=== PATIENT | male | born 1995 | race Hispanic/Latino ===

== ENCOUNTER 2019-08-17 11:29 | Emergency (ER) | payer OTHER ==
--- NOTE | 2019-08-17 14:31 | RAD REPORT ---
EXAM DESCRIPTION: RAD - Chest Pa And Lat (2 Views) - 08/17/2019 2:16 pm CLINICAL HISTORY: air under diaphragm?Left upper quadrant pain, abdominal pain, possible free air COMPARISON: July 2015 TECHNIQUE: PA and lateral views of the chest were obtained. FINDINGS: The lungs are clear. Lung markings match comparison. Heart size is normal and central vas culature is within normal limits. No pleural effusion or pneumothorax seen. No acute bony finding n oted. No aortic abnormality. No free air under the diaphragm. IMPRESSION: No acute cardiopulmonary process. No free air under the diaphragm.
[2019-08-17] MEDS ORDERED: DICYCLOMINE HCL 10 MG CAP ONE (14:38)
[2019-08-17] MEDS ORDERED: SUCRALFATE 1 GM TABLET ONE (14:38)
[2019-08-17 15:05] LABS: Absolute Lymphocytes (CBC) 2.7 K/uL (0.7-4.9); Basophils % 0.5 % (0-1.3); Hematocrit 44.8 % (39.6-49.0); Lymphocytes % 25.6 % (15.3-44.8); MPV 8.6 fL (7.6-11.3); RBC Red Blood Cell Count 4.99 M/uL (4.33-5.43)
[2019-08-17 15:35] LABS: ALT/SGPT 71 U/L (12-78); AST/SGOT 22 U/L (15-37); Albumin 4.3 g/dL (3.4-5.0); Alkaline Phosphatase 85 U/L (45-117); BUN Blood Urea Nitrogen 9 mg/dL (7-18); Bicarbonate 30 mmol/L (21-32); Bilirubin Direct 0.2 mg/dL (0-0.2); Bilirubin Total 0.6 mg/dL (0.2-1.0); Glucose Level 81 mg/dL (74-106); Lipase 95 U/L (73-393); Sodium Level 141 mmol/L (136-145)
--- NOTE | 2019-08-17 15:44 | EDPHYS ---
Physician Documentation [facility] Name: Jeferson Davidson Jr Age: 24 yrs Sex: Male : 1995 Arrival Date: 08/17/2019 Time: 11:32 Bed 20 Private MD: ED Physician Raji Rodriguez HPI: 08/17 14:46 This 24 yrs old Male presents to ER via Ambulatory with complaints of snw Abdominal Pain, Back Pain. 14:46 The patient presents with abdominal pain in the left upper quadrant. Onset: The snw symptoms/episode began/occurred acutely, 1 week(s) ago, and became persistent. The symptoms do not radiate. Associated signs and symptoms: Pertinent negatives: nausea, vomiting, and diarrhea. The symptoms are described as crampy, stabbing. Severity of pain: At its worst the pain was moderate in the emergency department the pain has improved. The patient has not experienced similar symptoms in the past. The patient has not recently seen a physician. Historical: - Allergies: 11:45 Codeine; aj1 11:45 Amoxicillin; aj1 - Home Meds: 11:45 None [Active]; aj1 - PMHx: 11:45 None; aj1 - PSHx: 11:45 None; aj1 - Immunization history:: Flu vaccine is up to date. - Social history:: Smoking status: Patient uses tobacco products, denies chronic smoking, but will smoke occasionally. - Ebola Screening: : Patient denies travel to an Ebola-affected area in the 21 days before illness onset. ROS: 14:46 Constitutional: Negative for fever, chills, and weight loss, Eyes: Negative for injury, snw pain, redness, and discharge, ENT: Negative for injury, pain, and discharge, Neck: Negative for injury, pain, and swelling, Cardiovascular: Negative for chest pain, palpitations, and edema, Respiratory: Negative for shortness of breath, cough, wheezing, and pleuritic chest pain, : Negative for injury, bleeding, discharge, and swelling, MS/Extremity: Negative for injury and deformity, Skin: Negative for injury, rash, and discoloration, Neuro: Negative for headache, weakness, numbness, tingling, and seizure. 14:46 Abdomen/GI: Positive for abdominal pain. 14:46 Back: Positive for radiated pain. Exam: 14:44 Constitutional: This is a well developed, well nourished patient who is awake, alert, snw and in no acute distress. Head/Face: Normocephalic, atraumatic. Eyes: Pupils equal round and reactive to light, extra-ocular motions intact. Lids and lashes normal. Conjunctiva and sclera are non-icteric and not injected. Cornea within normal limits. Periorbital areas with no swelling, redness, or edema. ENT: Nares patent. No nasal discharge, no septal abnormalities noted. Tympanic membranes are normal and external auditory canals are clear. Oropharynx with no redness, swelling, or masses, exudates, or evidence of obstruction, uvula midline. Mucous membranes moist. Neck: Trachea midline, no thyromegaly or masses palpated, and no cervical lymphadenopathy. Supple, full range of motion without nuchal rigidity, or vertebral point tenderness. No Meningismus. Chest/axilla: Normal chest wall appearance and motion. Nontender with no deformity. No lesions are appreciated. Cardiovascular: Regular rate and rhythm with a normal S1 and S2. No gallops, murmurs, or rubs. Normal PMI, no JVD. No pulse deficits. Respiratory: Lungs have equal breath sounds bilaterally, clear to auscultation and percussion. No rales, rhonchi or wheezes noted. No increased work of breathing, no retractions or nasal flaring. Back: No spinal tenderness. No costovertebral tenderness. Full range of motion. Skin: Warm, dry with normal turgor. Normal color with no rashes, no lesions, and no evidence of cellulitis. MS/ Extremity: Pulses equal, no cyanosis. Neurovascular intact. Full, normal range of motion. Neuro: Awake and alert, GCS 15, oriented to person, place, time, and situation. Cranial nerves II-XII grossly intact. Motor strength 5/5 in all extremities. Sensory grossly intact. Cerebellar exam normal. Normal gait. Psych: Awake, alert, with orientation to person, place and time. Behavior, mood, and affect are within normal limits. 14:44 Abdomen/GI: Inspection: abdomen appears normal, Bowel sounds: normal, Palpation: mild abdominal tenderness, in the posterior aspect of left lateral abdomen and left upper quadrant. Vital Signs: 11:45 BP 126 / 75; Pulse 76; Resp 18; Temp 97.7; Pulse Ox 100% on R/A; Height 5 ft. 9 in. aj1 (175.26 cm) (R); MDM: 14:09 Patient medically screened. snw 15:57 Data reviewed: vital signs, nurses notes. Data interpreted: Pulse oximetry: on room air snw is 100 %. Interpretation: normal. Counseling: I had a detailed discussion with the patient and/or guardian regarding: the historical points, exam findings, and any diagnostic results supporting the discharge/admit diagnosis, radiology results, the need for outpatient follow up, to return to the emergency department if symptoms worsen or persist or if there are any questions or concerns that arise at home. Special discussion: Based on the patient's Hx, exam, and Dx evaluation, there is no indication for emergent surgery or inpatient Tx. It is understood by the patient/guardian that if the Sx's persist or worsen they need to return immediately for re-evaluation. Based on the history and exam findings, there is no indication for further emergent testing or inpatient evaluation. I discussed with the patient/guardian the need to see the primary care provider for further evaluation of the symptoms. 08/17 14:30 Order name: Basic Metabolic Panel; Complete Time: 15:40 snw 08/17 14:30 Order name: CBC with Diff; Complete Time: 15:30 snw 08/17 14:30 Order name: Creatinine for Radiology; Complete Time: 15:30 snw 08/17 14:30 Order name: Hepatic Function; Complete Time: 15:40 snw 08/17 14:30 Order name: Lipase; Complete Time: 15:40 snw 08/17 14:34 Order name: Urine Dipstick--Ancillary (enter results) eb 08/17 11:38 Order name: Urine Dipstick-Ancillary (obtain specimen); Complete Time: 15:00 snw 08/17 13:35 Order name: Chest Pa And Lat (2 Views) XRAY sn 08/17 14:30 Order name: Labs collected and sent; Complete Time: 15:00 snw 08/17 14:58 Order name: RAD; Complete Time: 15:06 EDMS Administered Medications: 14:45 Drug: Bentyl 20 mg Route: PO; aa5 14:45 Drug: CarafATE 1 grams Route: PO; aa5 Disposition: 08/17/19 15:42 Discharged to Home. Impression: Upper abdominal pain, unspecified. - Condition is Stable. - Discharge Instructions: Abdominal Pain, Adult, Colic, Fat and Cholesterol Restricted Diet, Peptic Ulcer. - Prescriptions for Bentyl 20 mg Oral Tablet - take 1 tablet by ORAL route every 6 hours As needed; 20 tablet. - Work release form, Medication Reconciliation Form, Thank You Letter, Antibiotic Education, Prescription Opioid Use form. - Follow up: Private Physician; When: 2 - 3 days; Reason: Recheck today's complaints, Continuance of care, Re-evaluation by your physician. Follow up: Emergency Department; When: As needed; Reason: Worsening of condition. Addendum: 08/20/2019 08:47 Co-signature as Attending Physician, Raji Rodriguez MD I agree with the assessment and k dr plan of care. Signatures: Dispatcher [employer] EDMS Joceline Kilgore RN RN aj1 Raji Rodriguez MD MD [facility] Sanna Tellez, AUTOMOTIVE SALESPERSON-C AUTOMOTIVE SALESPERSON-Csnw Alejandra Stanford RN RN aa5 Hailee Bentley RN RN hb Corrections: (The following items were deleted from the chart) 08/17 15:53 15:42 08/17/2019 15:42 Discharged to Home. Impression: Upper abdominal pain, hb unspecified. Condition is Stable. Forms are Medication Reconciliation Form, Thank You Letter, Antibiotic Education, Prescription Opioid Use. Follow up: Private Physician; When: 2 - 3 days; Reason: Recheck today's complaints, Continuance of care, Re-evaluation by your physician. Follow up: Emergency Department; When: As needed; Reason: Worsening of condition. snw
--- NOTE | 2019-08-17 15:44 | ER ---
Nurse's Notes [facility] Name: Jeferson Davidson Jr Age: 24 yrs Sex: Male : 1995 Arrival Date: 08/17/2019 Time: 11:32 Bed 20 Private MD: Diagnosis: Upper abdominal pain, unspecified Presentation: 08/17 11:42 Presenting complaint: Patient states: LUQ abdominal pain that radiates to the back for aj1 the past week. Reports that he vomited once yesterday. Denies fever. Transition of care: patient was not received from another setting of care. Onset of symptoms was July 2019. Risk Assessment: Do you want to hurt yourself or someone else? Patient reports no desire to harm self or others. Initial Sepsis Screen: Does the patient meet any 2 criteria? No. Patient's initial sepsis screen is negative. Does the patient have a suspected source of infection? No. Patient's initial sepsis screen is negative. Care prior to arrival: None. 11:42 Method Of Arrival: Ambulatory aj 11:42 Acuity: THANG 3 aj1 Triage Assessment: 11:45 General: Appears in no apparent distress. comfortable, Behavior is calm, cooperative, aj1 appropriate for age. Pain: Complains of pain in left upper quadrant Pain currently is 9 out of 10 on a pain scale. Neuro: Level of Consciousness is awake, alert, obeys commands. Cardiovascular: Patient's skin is warm and dry. Respiratory: Airway is patent Respiratory effort is even, unlabored, Respiratory pattern is regular, symmetrical. GI: Reports upper abdominal pain. Historical: - Allergies: 11:45 Codeine; aj1 11:45 Amoxicillin; aj1 - Home Meds: 11:45 None [Active]; aj1 - PMHx: 11:45 None; aj1 - PSHx: 11:45 None; aj1 - Immunization history:: Flu vaccine is up to date. - Social history:: Smoking status: Patient uses tobacco products, denies chronic smoking, but will smoke occasionally. - Ebola Screening: : Patient denies travel to an Ebola-affected area in the 21 days before illness onset. Screenin:30 Abuse screen: Denies threats or abuse. Nutritional screening: No deficits noted. aa5 Tuberculosis screening: No symptoms or risk factors identified. Fall Risk None identified. Assessment: 13:30 General: Appears comfortable, Behavior is calm, cooperative. Pain: Complains of pain in aa5 left upper quadrant Pain radiates to back Pain currently is 5 out of 10 on a pain scale. Quality of pain is described as sharp, Pain began 2-3 days ago. Is intermittent. Neuro: Level of Consciousness is awake, alert, obeys commands, Oriented to person, place, time, situation. Cardiovascular: Heart tones S1 S2 present Patient's skin is warm and dry. Rhythm is regular. Respiratory: Airway is patent Respiratory effort is even, unlabored, Respiratory pattern is regular, symmetrical, Breath sounds are clear bilaterally. GI: Abdomen is round non-distended, Bowel sounds present X 4 quads. Abd is soft and non tender X 4 quads. Reports nausea, Reports vomited once yesterday, denies vomiting today. Patient currently denies diarrhea. : No signs and/or symptoms were reported regarding the genitourinary system. EENT: No signs and/or symptoms were reported regarding the EENT system. Derm: Skin is pink, warm \\T\\ dry. Musculoskeletal: Range of motion: intact in all extremities. 13:50 Reassessment: Patient is alert, oriented x 3, equal unlabored respirations, skin aa5 warm/dry/pink. Pt notified of need for urine specimen, pt states "I can't pee right now but I'll try later" . 14:45 Reassessment: Patient is alert, oriented x 3, equal unlabored respirations, skin aa5 warm/dry/pink. Pt given warm blanket. Pt's mother remains at bedside. . 14:45 Reassessment: Notified of wait time for lab results. . aa5 Vital Signs: 11:45 BP 126 / 75; Pulse 76; Resp 18; Temp 97.7; Pulse Ox 100% on R/A; Height 5 ft. 9 in. aj1 (175.26 cm) (R); ED Course: 11:32 Patient arrived in ED. as 11:38 Sanna Tellez FNP-C [facility]. snw 11:38 Raji Rodriguez MD is Attending Physician. snw 11:44 Triage completed. aj1 11:45 Arm band placed on Patient placed in an exam room. aj1 13:30 Bed in low position. Call light in reach. Side rails up X 1. Adult w/ patient. aa5 13:48 Alejandra Stanford, RN is Primary Nurse. aa5 14:45 Initial lab(s) drawn, by me, sent to lab. Inserted saline lock: 20 gauge in right aa5 antecubital area, using aseptic technique. Blood collected. 15:52 No provider procedures requiring assistance completed. IV discontinued, intact, hb bleeding controlled, No redness/swelling at site. Pressure dressing applied. Administered Medications: 14:45 Drug: Bentyl 20 mg Route: PO; aa5 14:45 Drug: CarafATE 1 grams Route: PO; aa5 Outcome: 15:42 Discharge ordered by MD. snw 15:52 Discharged to home ambulatory, with family. hb 15:52 Condition: stable 15:52 Discharge instructions given to patient, family, Instructed on discharge instructions, follow up and referral plans. medication usage, Demonstrated understanding of instructions, follow-up care, medications, Prescriptions given X 1. 15:53 Patient left the ED. hb Signatures: Joceline Kilgore RN RN aj1 Sanna Tellez, MATH TUTOR-C MATH TUTOR-Evelyn Crenshaw as Alejandra Stanford, RN RN aa5 Hailee Bentley, GILSON RN hb
[2019-08-17 16:09] VITALS: BP 126/75; TEMP 97.7; O2SAT 100
[2019-08-17 16:17] LABS: Urine Blood NEGATIVE (NEG); Urine Glucose NEGATIVE (NEG); Urine Protein NEGATIVE (NEG); Urine Specific Gravity 1.025 (1.005-1.030)
== END 2019-08-17 15:53 | disposition home or self-care (01) ==
LOC: ER 11:29
DX: R10.12 Left upper quadrant pain (principal); Z72.0 Tobacco use; Z88.1 Allergy status to other antibiotic agents; Z88.5 Allergy status to narcotic agent
CPT/HCPCS: 36415; 71046; 80048; 80076; 81003; 83690; 85025; 99284

== ENCOUNTER 2020-02-10 17:23 | Emergency (ER) | payer OTHER ==
--- NOTE | 2020-02-10 18:30 | RAD REPORT ---
EXAM DESCRIPTION: CT - Head Brain Wo Cont - 02/10/2020 6:21 pm CLINICAL HISTORY: HEADACHEhistory of left-sided head and face trauma COMPARISON: HEAD BRAIN W O CONTRAST dated 01/22/2016 TECHNIQUE: Axial 5 mm thick images of the head were obtained without IV contrast. All CT scans are performed using dose optimization technique as appropriate and may include automated exposure control or mA/KV adjustment according to patient size. FINDINGS: No intracranial hemorrhage, mass, edema or shift of mid-line structures. No acute infarcti on changes seen. No abnormal extra-axial fluid collections. Ventricles are normal. Contusion and marysol a changes are seen in the fatty tissues overlying the left frontal bone and left periorbital region. No globe or orbital content injury on the left. Mastoid air cells and visualized portions of the paranasal sinuses are clear. No acute bony findings. IMPRESSION: No intracranial abnormality. Contusion and edema changes over the left-sided forehead and face soft tissues. Underlying orbital an d bony structures are intact.
[2020-02-10] MEDS ORDERED: HYDROCODONE/APAP 10/325 TAB ONE (18:58)
--- NOTE | 2020-02-10 19:02 | EDPHYS ---
Physician Documentation [facility] Name: Jeferson Davidson Jr Age: 24 yrs Sex: Male : 1995 Arrival Date: 02/10/2020 Time: 17:26 Bed 25 Private MD: ED Physician Manish Canales HPI: 02/09 18:08 This 24 yrs old Male presents to ER via Ambulatory with complaints of Left 4th pm1 Finger Injury. 18:09 The patient or guardian reports pain, swelling. The complaints affect the proximal pm1 phalanx of left ring finger. Context: resulted from a fall, Patient was drinking last night and fell forward and bent his left 4th finger backwards. Patient also has a headache. Has a contusion to left side of his forehead. No LOC, neck pain. Onset: The symptoms/episode began/occurred last night. Modifying factors: The symptoms are alleviated by holding still, the symptoms are aggravated by bending left 4th finger. Associated signs and symptoms: Pertinent negatives: cyanosis distally, decreased sensation distally, numbness distally, tingling distally. Severity of symptoms: in the emergency department the symptoms are unchanged. The patient has not experienced similar symptoms in the past. Historical: - Allergies: 17:37 Amoxicillin; ss 17:37 Codeine; ss - PSHx: 17:37 None; ss - Immunization history:: Adult Immunizations up to date. - Social history:: Smoking status: Patient denies any tobacco usage or history of. ROS: 18:09 Constitutional: Negative for fever, chills, and weight loss, Neck: Negative for injury, pm1 pain, and swelling, Cardiovascular: Negative for chest pain, palpitations, and edema, Respiratory: Negative for shortness of breath, cough, wheezing, and pleuritic chest pain, Abdomen/GI: Negative for abdominal pain, nausea, vomiting, diarrhea, and constipation, Back: Negative for injury and pain. 18:09 Skin: Negative for injury, rash, and discoloration, Neuro: Negative for headache, weakness, numbness, tingling, and seizure. 18:09 MS/extremity: Positive for pain, swelling, tenderness, of the left ring finger, Negative for paresthesias. Exam: 18:09 Constitutional: This is a well developed, well nourished patient who is awake, alert, pm1 and in no acute distress. Chest/axilla: Normal chest wall appearance and motion. Nontender with no deformity. No lesions are appreciated. Cardiovascular: Regular rate and rhythm with a normal S1 and S2. No gallops, murmurs, or rubs. No pulse deficits. Skin: Warm, dry with normal turgor. Normal color with no rashes, no lesions, and no evidence of cellulitis. 18:09 Respiratory: Lungs have equal breath sounds bilaterally, clear to auscultation and percussion. No rales, rhonchi or wheezes noted. No increased work of breathing, no retractions or nasal flaring. Abdomen/GI: Soft, non-tender, with normal bowel sounds. No distension or tympany. No guarding or rebound. No evidence of tenderness throughout. Back: No spinal tenderness. No costovertebral tenderness. Full range of motion. 18:09 Head/face: Exam is negative for altman signs, raccoon eyes, Noted is no obvious of injury or deformity except contusion, that is superficial, of the forehead. 18:09 Musculoskeletal/extremity: Extremities: grossly normal except: noted in the proximal phalanx of left ring finger: swelling, tenderness, brisk capillary refill to left 4th finger. the left ring finger Sensation intact. Vital Signs: 17:35 BP 132 / 73; Pulse 82; Resp 15; Temp 97.5(TE); Pulse Ox 98% on R/A; Height 5 ft. 9 in. ss (175.26 cm); Pain 9/10; 19:21 BP 146 / 93; Pulse 78; Resp 18; Temp 98.0; Pulse Ox 98% ; Pain 2/10; ll1 Procedures: 19:03 Splinting: Splint applied to left ring finger using finger splint, applied by tech. pm1 Examined by me, post splint application: neurovascular intact, 2+ distal pulses palpable, brisk capillary refill noted, Patient tolerated well. MDM: 17:36 Patient medically screened. [facility] 18:53 Data reviewed: vital signs. Data interpreted: Pulse oximetry: on room air is 98 %. pm1 Interpretation: normal. Counseling: I had a detailed discussion with the patient and/or guardian regarding: the historical points, exam findings, and any diagnostic results supporting the discharge/admit diagnosis, radiology results, the need for outpatient follow up, for definitive care, a hand specialist, to return to the emergency department if symptoms worsen or persist or if there are any questions or concerns that arise at home. 02/09 18:01 Order name: CT Head Brain wo Cont; Complete Time: 18:41 pm1 02/09 18:01 Order name: Hand Left 3 View XRAY; Complete Time: 19:30 pm1 02/09 18:43 Order name: Finger Splint; Complete Time: 19:42 pm1 Administered Medications: 19:00 Drug: HYDROcodone-acetaminophen 10 mg-325 mg 1 tabs {Note: RASS 0.} Route: PO; ll1 19:20 Follow up: Response: No adverse reaction; Pain is decreased; RASS: Alert and Calm (0) ll1 Disposition: 02/10 10:38 Co-signature as Attending Physician, Manish Canales MD I agree with the assessment and gissel plan of care. Disposition: 02/10/20 18:59 Discharged to Home. Impression: Displaced fracture of proximal phalanx of left ring finger, Contusion of other part of head - forehead. - Condition is Stable. - Discharge Instructions: Facial or Scalp Contusion, Finger Fracture, Head Injury, Adult. - Prescriptions for Tramadol 50 mg Oral Tablet - take 1 tablet by ORAL route every 8 hours as needed; 12 tablet. - Medication Reconciliation Form, Thank You Letter, Antibiotic Education, Prescription Opioid Use form. - Follow up: Emergency Department; When: As needed; Reason: Worsening of condition. Follow up: Private Physician; When: 2 - 3 days; Reason: Recheck today's complaints, Continuance of care, Re-evaluation by your physician. - Problem is new. - Symptoms have improved. Signatures: Dispatcher [employer] EDAR Manish Canales MD MD cha Smirch, Shelby, RN RN ss Samson Cadena, MIRTA BRAKE RIDER pm1 Noah Patel RN RN ll1 Corrections: (The following items were deleted from the chart) 02/09 19:00 18:59 02/10/2020 18:59 Discharged to Home. Impression: Displaced fracture of proximal pm1 phalanx of left ring finger. Condition is Stable. Forms are Medication Reconciliation Form, Thank You Letter, Antibiotic Education, Prescription Opioid Use. Follow up: Emergency Department; When: As needed; Reason: Worsening of condition. Follow up: Private Physician; When: 2 - 3 days; Reason: Recheck today's complaints, Continuance of care, Re-evaluation by your physician. Problem is new. Symptoms have improved. pm1 19:45 19:00 02/10/2020 18:59 Discharged to Home. Impression: Displaced fracture of proximal ll1 phalanx of left ring finger; Contusion of other part of head - forehead. Condition is Stable. Discharge Instructions: Finger Fracture. Prescriptions for Tramadol 50 mg Oral Tablet - take 1 tablet by ORAL route every 8 hours as needed; 12 tablet. and Forms are Medication Reconciliation Form, Thank You Letter, Antibiotic Education, Prescription Opioid Use. Follow up: Emergency Department; When: As needed; Reason: Worsening of condition. Follow up: Private Physician; When: 2 - 3 days; Reason: Recheck today's complaints, Continuance of care, Re-evaluation by your physician. Problem is new. Symptoms have improved. pm1
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
[2020-02-10 19:50] VITALS: O2SAT 98
[2020-02-10 19:52] VITALS: BP 146/93; TEMP 98
== END 2020-02-10 19:45 | disposition home or self-care (01) ==
LOC: ER 17:23
PROC: 2W3KX1Z Immobilization of Left Finger using Splint (ICD-10-PCS; principal; 2020-02-10)
DX: S62.615A Displaced fracture of proximal phalanx of left ring finger, initial encounter for closed fracture (principal); S00.83XA Contusion of other part of head, initial encounter; W19.XXXA Unspecified fall, initial encounter; Y93.89 Activity, other specified; Y92.9 Unspecified place or not applicable; Z88.1 Allergy status to other antibiotic agents; Z88.5 Allergy status to narcotic agent
CPT/HCPCS: 70450; 99283

== ENCOUNTER 2020-02-14 07:50 | Day surgery (SDC) | payer OTHER ==
[2020-02-14] MEDS ORDERED: Ringers Lactate 1,000 ML IV ONE (08:21)
[2020-02-14] MEDS ORDERED: CEFAZOLIN/SWI 1gm 1 GM/10 ML SYR ONE (08:21)
[2020-02-14] MEDS ORDERED: MIDAZOLAM HCL 2 MG/2 ML INJ ONE (08:50)
[2020-02-14] MEDS ORDERED: propofoL 200 MG/20 ML VIAL IV ONE (08:50)
[2020-02-14] MEDS ORDERED: FENTANYL CITR 100 MCG/2 ML ONE (08:50)
[2020-02-14] MEDS: MEPERIDINE HCL 25 MG/0.5 ML ONE ×2 (10:20→11:00)
[2020-02-14] MEDS: FENTANYL CITR 100 MCG/2 ML ONE ×2 (10:35→10:45)
[2020-02-14] MEDS ORDERED: PROMETHAZINE INJ 25 MG/ML AMP ONE (10:38)
[2020-02-14] MEDS: HYDROMORPHONE HCL 1 MG/ML INJ ONE ×4 (11:00→11:31)
--- NOTE | 2020-02-14 11:04 | RAD REPORT ---
EXAM DESCRIPTION: RAD - Fluoroscopy <1 Hour - 02/14/2020 10:34 am CLINICAL HISTORY: ORIF LEFT 4TH FINGER COMPARISON: No comparisons FINDINGS: Fluoroscopy time 0.9 minutes.
[2020-02-14] MEDS: LABETALOL 20 MG/4ML SYRINGE IV ONE ×2 (11:10→11:20)
[2020-02-14] MEDS ORDERED: HYDROCODONE/APAP 10/325 TAB ONE (12:06)
[2020-02-14] MEDS ORDERED: FENTANYL CITR 250 MCG/5 ML ONE (12:13)
[2020-02-14 12:59] VITALS: O2SAT 96
[2020-02-14 13:01] VITALS: BP 142/85; TEMP 97
--- NOTE | 2020-02-14 17:55 | OP ---
Surgeon: Ehsan Cuello MD Deck Lid Fitter: Fabian. Preoperative Diagnosis: Fracture of the left ring finger proximal phalanx. Postoperative Diagnosis: Fracture of the left ring finger proximal phalanx. Procedure Performed: Attempted percutaneous pinning, open reduction and internal fixation, splint. Anesthesia: General. Procedure In Detail: After satisfactory induction of general anesthesia, a C- arm was brought in. A template was used to reduce the fracture which was 5 days old and spiral. It could not be reduced adequately. Then, the hand was prepped with Betadine scrub, Betadine paint, and dry sterile drapes applied in the usual manner. The arm was exsanguinated with Esmarch. Tourniquet was inflated to 250 mm. Hand was placed on a [place] table. A curvilinear incision made over the dorsal and the radial surface of the proximal phalanx. The flap was elevated and dissection proceeded down. The extensor mechanism was retracted ulnarly . Periosteal elevator was used. The fracture was reduced and then a 6-hole plate was cut to 5 holes and then was held in place with 1.3 mm screws, range of length from 10 to 6 mm. Five screws were used. C- arm revealed adequate reduction. Electrocautery was used for hemostasis. Periosteum was closed with 6-0 Vicryl. Skin closed with 4-0 Prolene with vertical mattress, dressed with Xeroform, 2 inch Lynn, Kerlix, and a splint holding the wrist and a splint holding the wrist in 10 degrees of dorsiflexion, MCP 90 PIP and DIP 0. Patient tolerated the procedure well and returned to Recovery. KEITH/DAWNA Voice ID: [id number] Report ID: [id number] MAUDE
== END 2020-02-14 12:40 | disposition home or self-care (01) ==
LOC: OR 07:50
PROVIDERS: ATTEND Specialist
PROC: 0PSV04Z Reposition Left Finger Phalanx with Internal Fixation Device, Open Approach (ICD-10-PCS; principal; 2020-02-14 09:00)
DX: S62.615A Displaced fracture of proximal phalanx of left ring finger, initial encounter for closed fracture (principal); X58.XXXA Exposure to other specified factors, initial encounter
CPT/HCPCS: 76000; 26735; J2704; J2550; J2250; J3010 ×3; J2175; J1170 ×2; J0690; J7120

== ENCOUNTER 2021-07-27 20:36 | Emergency (ER) | payer OTHER ==
--- OUTSIDE RECORDS SUMMARY | 2021-07-27 20:39 | XMS REPORT | Continuity of Care Document ---
:1995 Author Organization [facility] t Address [address] [place] [address] Dr. Marin [address] [place] [id number] Care Team Providers Name Role Phone Unavailable Unavailable Unavailable Problems This patient has no known problems. Allergies, Adverse Reactions, Alerts This patient has no known allergies or adverse reactions. Medications This patient has no known medications. Procedures This patient has no known procedures. Results This patient has no known results.
[2021-07-27 21:27] LABS: Absolute Lymphocytes (CBC) 3.3 K/uL (0.7-4.9); Basophils % 0.6 % (0-1.3); Hematocrit 44.1 % (39.6-49.0); Lymphocytes % 30.5 % (15.3-44.8); MPV 8.3 fL (7.6-11.3); RBC Red Blood Cell Count 4.89 M/uL (4.33-5.43)
[2021-07-27 21:46] LABS: ALT/SGPT 75 U/L (12-78); AST/SGOT 30 U/L (15-37); Albumin 4.1 g/dL (3.4-5.0); Alkaline Phosphatase 71 U/L (45-117); BUN Blood Urea Nitrogen 14 mg/dL (7-18); Bicarbonate 27 mmol/L (21-32); Bilirubin Direct < 0.1 mg/dL (0-0.2); Bilirubin Total 0.3 mg/dL (0.2-1.0); Glucose Level 109 mg/dL (74-106); Lipase 110 U/L (73-393); Potassium 3.9 mmol/L (3.5-5.1); Sodium Level 143 mmol/L (136-145)
[2021-07-27] MEDS ORDERED: NA CHLORIDE 0.9% 1,000 ML ONE (22:30)
[2021-07-27] MEDS ORDERED: KETOROLAC 30 MG/ML INJ ONE (22:30)
--- NOTE | 2021-07-28 00:32 | EDPHYS ---
Physician Documentation [facility] Name: Jeferson Davidson Jr Age: 26 yrs Sex: Male : 1995 Arrival Date: 07/27/2021 Time: 20:41 Bed 23 Private MD: ED Physician Katie Perdomo HPI: 07/27 22:19 This 26 yrs old Male presents to ER via Ambulatory with complaints of pm1 Abdominal Pain. 22:19 The patient presents with abdominal pain in the left upper quadrant. Onset: The pm1 symptoms/episode began/occurred yesterday. The symptoms do not radiate. Associated signs and symptoms: Pertinent positives: nausea and vomiting, Pertinent negatives: chest pain, diarrhea, dysuria, fever, shortness of breath. Modifying factors: The symptoms are alleviated by nothing, the symptoms are aggravated by alcohol. Severity of pain: in the emergency department the pain has improved. The patient has experienced similar episodes in the past, a few times. The patient has not recently seen a physician. Historical: - Allergies: 20:57 Amoxicillin; ss 20:57 Codeine; ss - Home Meds: 20:57 Ibuprofen Oral [Active]; ss - PMHx: 20:57 None; ss - PSHx: 20:57 None; ss - Immunization history:: Client reports having NOT received the Covid vaccine. - Social history:: Smoking status: Patient/guardian denies using tobacco, Stopped _ months ago 5. ROS: 22:19 Constitutional: Negative for fever, chills, and weight loss, Cardiovascular: Negative pm1 for chest pain, palpitations, and edema, Respiratory: Negative for shortness of breath, cough, wheezing, and pleuritic chest pain. 22:19 MS/Extremity: Negative for injury and deformity, Skin: Negative for injury, rash, and discoloration, Neuro: Negative for headache, weakness, numbness, tingling, and seizure. 22:19 Abdomen/GI: Positive for abdominal pain, nausea and vomiting, Negative for diarrhea, constipation. 22:19 All other systems are negative. Exam: 22:19 Constitutional: This is a well developed, well nourished patient who is awake, alert, pm1 and in no acute distress. Head/Face: Normocephalic, atraumatic. 22:19 Back: No spinal tenderness. No costovertebral tenderness. Full range of motion. Skin: Warm, dry with normal turgor. Normal color with no rashes, no lesions, and no evidence of cellulitis. MS/ Extremity: Pulses equal, no cyanosis. Neurovascular intact. Full, normal range of motion. 22:19 Eyes: Exam is negative for acute changes, Extraocular movements: intact throughout, Sclera: no acute changes, icterus, is not appreciated. 22:19 ENT: Exam is negative for acute changes, Mouth: Lips: normal, Oral mucosa: normal, pink and intact, moist. 22:19 Cardiovascular: Exam negative for acute changes, Rate: normal, Rhythm: regular, Pulses: no pulse deficits are appreciated. 22:19 Respiratory: Exam negative for acute changes, respiratory distress, shortness of breath, Breath sounds: are clear throughout. 22:19 Abdomen/GI: Inspection: obese Palpation: soft, in all quadrants, mild abdominal tenderness, in the left upper quadrant. 22:19 Neuro: Exam negative for acute changes, Orientation: is normal, Mentation: is normal, Motor: is normal, moves all fours. Vital Signs: 20:55 BP 171 / 99; Pulse 95; Resp 16; Temp 98.1(TE); Pulse Ox 100% on R/A; Height 5 ft. 9 in. ss (175.26 cm); Pain 7/10; 23:58 BP 115 / 66; Pulse 70; Resp 16; Temp 98.2; Pulse Ox 99% on R/A; ch4 07/28 00:43 BP 114 / 72; Pulse 67; Resp 18; Pulse Ox 99% on R/A; em MDM: 07/27 22:07 Patient medically screened. pm1 07/28 00:31 Data reviewed: vital signs. Data interpreted: Pulse oximetry: on room air is 99 %. pm1 Interpretation: normal. Counseling: I had a detailed discussion with the patient and/or guardian regarding: the historical points, exam findings, and any diagnostic results supporting the discharge/admit diagnosis, lab results, radiology results, the need for outpatient follow up, a family practitioner, to return to the emergency department if symptoms worsen or persist or if there are any questions or concerns that arise at home. 07/27 21:07 Order name: Basic Metabolic Panel em 07/27 21: Order name: CBC with Diff; Complete Time: 22:04 em 08/30 21:07 Order name: Hepatic Function; Complete Time: 22:04 em 07/27 21:07 Order name: Lipase; Complete Time: 22:04 em 07/27 21:08 Order name: Basic Metabolic Panel; Complete Time: 22:04 EDMS 07/27 22:05 Order name: CT Abd/Pelvis - IV Contrast Only pm1 07/27 21:07 Order name: IV Saline Lock; Complete Time: 22:00 em 07/27 21:07 Order name: Labs collected and sent; Complete Time: 22:00 em Administered Medications: 07/27 22:10 Drug: Ketorolac 30 mg Route: IVP; Site: right antecubital; ch4 22:11 Drug: NS 0.9% 1000 ml Route: IV; Rate: 1000 ml; Site: right antecubital; ch4 07/28 00:40 Drug: Pepcid (famotidine) 20 mg Route: IVP; Site: right antecubital; em 00:41 Drug: GI Cocktail without - (Maalox Suspension 30 ml, Lidocaine Liquid 2 % 15 em ml) Route: PO; Disposition: 19:13 Co-signature as Attending Physician, Katie Perdomo MD. ma2 Disposition Summary: 07/28/21 00:31 Discharge Ordered Location: Home pm1 Problem: new pm1 Symptoms: have improved pm1 Condition: Stable pm1 Diagnosis - Abdominal pain, unspecified pm1 Followup: pm1 - With: Emergency Department - When: As needed - Reason: Worsening of condition Followup: pm1 - With: Private Physician - When: 2 - 3 days - Reason: Recheck today's complaints, Continuance of care, Re-evaluation by your physician Discharge Instructions: - Discharge Summary Sheet pm1 - Abdominal Pain, Adult pm1 Forms: - Medication Reconciliation Form pm1 - Thank You Letter pm1 - Work release form em - Antibiotic Education pm1 - Prescription Opioid Use pm1 Prescriptions: - Pepcid 20 mg Oral Tablet - take 1 tablet by ORAL route every 12 hours for 10 days; 20 tablet; Refills: 0, pm1 Product Selection Permitted Signatures: Dispatcher [employer] Rajesh Lange RN RN em Smirch, Shelby, RN RN ss Samson Cadena, ASSISTANT PROSECUTING ATTORNEY ASSISTANT PROSECUTING ATTORNEY pm1 Katie Perdomo MD MD ma2 Kylie Bajwa, RN RN ch4
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
[2021-07-28 00:50] VITALS: TEMP 98.2; O2SAT 99
[2021-07-28 00:52] VITALS: BP 114/72
[2021-07-28] MEDS ORDERED: MAGNES/ALUMIN/SIMET 30ML UCUP ONE (00:57)
[2021-07-28] MEDS ORDERED: LIDOCAINE VISCOUS 2% SOLN 15 ML UDC ONE (00:57)
[2021-07-28] MEDS ORDERED: FAMOTIDINE 20 MG/2 ML VIAL IV ONE (00:58)
--- NOTE | 2021-07-28 13:25 | RAD REPORT ---
EXAM DESCRIPTION: CT - Abdomen Pelvis W Contrast - 07/28/2021 6:27 am CLINICAL HISTORY: 26 years, Male, ABD PAIN COMPARISON: None TECHNIQUE: Contrast-enhanced images of the abdomen and pelvis were performed utilizing 5 mm slice th ickness at 5 mm interval reconstruction from the lung bases to the ischial tuberosities after the adm inistration of IV contrast. In addition multiplanar reformats in the coronal and sagittal plane were obtained and reviewed. This exam was performed according to our departmental dose-optimization protocol, which includes auto mated exposure control, adjustment of the mA and/or kV according to patient size and/or use of iterat moiz reconstruction technique. FINDINGS: The lung bases demonstrate to be clear. The liver demonstrate decreased attenuation corresponding to mild fatty filtration. Otherwise the katie er, gallbladder, pancreas, spleen and adrenal glands demonstrate to be unremarkable, no focal lesions are noted. The kidneys demonstrate normal uptake of contrast media with no evidence for hydronephrosis. Grossly the unopacified stomach, small bowel and large bowel demonstrate to be within normal limits. There is no evidence for bowel dilatation/or free air. The appendix is normal. The urinary bladder demonstrate to be unremarkable. The prostate gland is normal. The aorta demon strate to be normal. There is no retroperitoneal lymphadenopathy. There is no evidence for ascites/ or significant abnormal fluid collections. The rest of the soft tissue and bony structures are within normal limits. IMPRESSION: No acute intra-abdominal process. Mild fatty filtration of the liver. Otherwise unremarkable CT scan of the abdomen and pelvis with contrast. Electronically signed by: Kaushal Chiu MD 07/27/2021 10:58 PM CDT Due to temporary technical issues with the PACS/Fluency reporting system, reports are being signed by the in house radiologists without review as a courtesy to insure prompt reporting. The interpreting radiologist is fully responsible for the content of the report.
== END 2021-07-28 00:44 | disposition home or self-care (01) ==
LOC: ER 20:36
DX: R10.12 Left upper quadrant pain (principal); Z88.1 Allergy status to other antibiotic agents; Z88.5 Allergy status to narcotic agent
CPT/HCPCS: 85025; 80048; 36415; 80076; 83690; 74177; Q9967; J7030; 96374; 96375; 99284

== ENCOUNTER 2023-01-31 09:19 | Emergency (ER) | payer OTHER ==
--- OUTSIDE RECORDS SUMMARY | 2023-01-31 09:34 | XMS REPORT | Continuity of Care Document ---
:1995 Author Organization [facility] t Address [address] [place] [address] Care Team Providers Name Role Phone PCP, PATIENT DOES NOT HAVE A Primary Care Physician Georgia Sauceda RN, Franco Parada Attending Clinician Unavailable LACHELLE LAURA Attending Clinician Unavailable Lachelle Junior Attending Clinician Doctor Unassigned, [place] Attending Clinician Unavailable Lien Farris Attending Clinician Payers Payer Name Policy Type Policy Number Effective Date Expiration Date [facility] [id number] 2020 2022 PPO/POS 00:00:00 00:00:00 [place] [id number] 2015 00:00:00 Problems Condition Condition Condition Status Onset Resolution Last Treating Co mments Source Name Details Category Date Date Treatment Clinician Date No known No known Disease Unive rs active active ity of problems problems [facility] Allergies, Adverse Reactions, Alerts Allergy Allergy Status Severity Reaction(s) Onset Inactive Treating Comm ents Source Name Type Date Date Clinician Codeine Propensi Active Other - See Chest Un osmani ty to comments 07-01 pain ity of adverse 00:00: [place] reaction Medical s Branch CODEINE DRUG Active Other-Cmnt Unive rs INGREDI 8 ity of 00:00: [place] [id number] Medical Branch Social History Social Habit Start Date Stop Date Quantity Comments Source Exposure to 2022-05-16 2022-05-26 Not sure [facility] SARS-CoV-2 (event) 00:00:00 09:46:00 Medica l Branch Sex Assigned At [birth year] [facility] 00:00:00 00:00:00 Medical Branch Smoking Status Start Date Stop Date Source Unknown if ever smoked [facility] Medications Ordered Filled Start Stop Current Ordering Indication Dosage Frequency Signature Comments Components Source Medication Medication Date Date Medication? Clinician (SIG) Name Name bromphenira Yes [id number] 5mL Take 5 mL Univers mine-pseudo 6-29 by mouth 4 it y of ephedrine-D 00:00[place] ([place] (BROMF[place] 00 times Medical DM) 2-30-10 daily as Bran ch mg/5 mL needed for syrup Congestion /Allergies or Cough. fluticasone Yes [id number] 2{spray Use 2 Univers propionate 6-29 } Sprays in ity of 50 00:00: each [place] mcg/actuati 00 nostril Medic al on nasal daily. Branch spray fexofenadin Yes [id number] 1{tbl} Take 1 Univers e-pseudoeph 6-29 tablet by ity of edrine 00:00: mouth 2 [place] (OREN-D) 00 (two) Medical 60-120 mg times Branch per tablet daily. bromphenira Yes [id number] 5mL Take 5 mL Univers mine-pseudo 6-29 by mouth 4 it y of ephedrine-D 00:00: (four[place] (BROMFED 00 times Medical DM) 2-30-10 daily as Bran ch mg/5 mL needed for syrup Congestion /Allergies or Cough. fluticasone Yes [id number] 2{spray Use 2 Univers propionate 6-29 } Sprays in ity of 50 00:00: each [place] mcg/actuati 00 nostril Medic al on nasal daily. Branch spray fexofenadin 0 Yes [id number] 1{tbl} Take 1 Univers e-pseudoeph 6-29 tablet by ity of edrine 00:00: mouth 2 [place] (OREN-D) 00 (two) Medical 60-120 mg times Branch per tablet daily. methocarbam 2020- No 1000mg 1,000 mg, Univers oL 01-13 Oral, ONCE ity of (ROBAXIN) 17:45: 17:42 NOW, 1 [place] tablet 00 :00 dose, Tue Medical 1,000 mg 01/13/21 at [facility] h 1145, ISIDRO acetaminoph 2020- No 1000mg 1,000 mg, Univers en 01-13 Oral, ity of (TYLENOL) 17:45: 17:42 ONCE, 1 [place] tablet [place] :[place] dose, e Medical 1,000 mg 01/13/21 at [facility] h 1145, Routine ketorolac 2020- No 60mg 60 mg, Unive rs (TORADOL) 01-13 Intramuscu ity of injection 17:45: 17:43 lar, ONCE, [place] 60 mg 00 :00 1 dose, Medical [facility] Branch 01/13/21 at 1145, ISIDRO
Fa culty member approving Restricted medication : EMERGENCY ROOM, ibuprofen Yes [id number] 800mg Take 1 Univers 800 mg 2-16 tablet by ity of tablet 00:00: mouth [place] 00 every 8 Medical (eight) Branch hours as needed for Pain (scale 4-6). methocarbam Yes [id number] 750mg Take 1 Univers oL 750 mg 2-16 tablet by ity o f tablet 00:00: mouth 4 [place] 00 (four) Medical times Branch daily as needed for Other (muscle strain). ibuprofen Yes [id number] 800mg Take 1 Univers 800 mg 2-16 tablet by ity of tablet 00:00: mouth [place] 00 every 8 Medical (eight) Branch hours as needed for Pain (scale 4-6). methocarbam 0 Yes [id number] 750mg Take 1 Univers oL 750 mg 2-16 tablet by ity o f tablet 00:00: mouth 4 [place] 00 (four) Medical times Branch daily as needed for Other (muscle strain). ibuprofen 0 Yes [id number] 800mg Take 1 Univers 800 mg 2-16 tablet by ity of tablet 00:00: mouth [place] 00 every 8 Medical (eight) Branch hours as needed for Pain (scale 4-6). methocarbam 2021-0 Yes [id number] 750mg Take 1 Univers oL 750 mg 2-16 tablet by ity o f tablet 00:00: mouth 4 [place] 00 (four) Medical times Branch daily as needed for Other (muscle strain). ibuprofen Yes [id number] 800mg Take 1 Univers 800 mg 2-16 tablet by ity of tablet 00:00: mouth [place] 00 every 8 Medical (eight) Branch hours as needed for Pain (scale 4-6). methocarbam Yes [id number] 750mg Take 1 Univers oL 750 mg 2-16 tablet by ity o f tablet 00:00: mouth 4 [place] 00 (four) Medical times [place] daily as needed for Other (muscle strain). Vital Signs Vital Name Observation Time Observation Value Comments Source Systolic blood 2022-05-26 14:52:00 132 mm[Hg] Univer sity [facility] Diastolic blood 2022-05-26 14:52:00 83 [facility]Hg[facility] 2022-05-26 14:52:00 90 /min [facility] Body temperature 2022-05-26 14:52:00 37.44 [facility] Respiratory rate 2022-05-26 14:52:00 18 /[facility] Body height 2022-05-26 14:52:00 175.3 cm [facility] Body weight 2022-05-26 14:52:00 133.993 kg [facility] BMI 2022-05-26 14:52:00 43.62 kg/m2 [facility] Oxygen saturation in 2022-05-26 14:52:00 97 /[facility] Arterial blood by [facility] Pulse oximetry Branch Systolic blood 2021-01-13 16:03:00 153 mm[Hg] [facility]astolic blood 2021-01-13 16:03:00 89 mm[Hg] [facility] 2021-01-13 16:03:00 87 /min [facility] Body temperature 2021-01-13 16:03:00 37.17 [facility] Respiratory rate 2021-01-13 16:03:00 20 /min [facility] Body weight 2021-01-13 16:03:00 148.326 kg [facility] Oxygen saturation in 2021-01-13 16:03:00 98 /min [facility] Arterial blood by [facility] Pulse oximetry [place] Procedures Procedure Date / Time Performed Performing Clinician Sour e CONSENT/REFUSAL FOR 2022-05-26 14:47:32 Doctor Unassigned, No Un [facility] DIAGNOSIS AND Name Medical Branch TREATMENT XR SPINE THORACIC 3 2021-01-13 17:03:31 Lien Ell[facility] VW Medical Branch XR RIBS 3 VW RIGHT 2021-01-13 17:03:31 Lien [facility] Encounters Start End Encounter Admission Attending Care Care Encounter Source Date/Time Date/Time Type Type Clinicians Facility Department ID 2022-05-27 2022-05-27 Telephone AMY Sauceda [id number] Univers 00:00:00 00:00:00 Franco AMES [id number] [facility] [id number] Jairon as [id number] [facility] 019 Branch 2022-05-26 2022-05-26 Outpatient R [facility] [id number] Univers 10:00:00 10:27:25 LACHELLE germain o f [facility] 2022-05-26 2022-05-26 Urgent [facility] [id number] Univers 10:00:00 10:20:00 Care [facility] [id number] i ty of [place] [id number] Jairon as EB?BLEA [id number] Mn dical [address] MEDICAL OFFICE BUILDING 2022-05-26 2022-05-26 Orders Doctor REYES [id number] Univers 00:00:00 00:00:00 Only UnassignedKWAKU [id number] ity of [facility] [id number] Jairon as [id number] [facility] 009 Branch 2021-01-13 2021-01-13 Emergency [facility] [id number] Univers 10:05:00 11:59:00 Lien Suero [id number] i mindy [place] [id number] [facility] [id number] [address] 2021-01-13 2021-01-13 Emergency X [facility] ERT [id number] Univers 09:38:00 09:38:[address] [facility] Results This patient has no known results.
[2023-01-31] MEDS ORDERED: KETOROLAC 30 MG/ML INJ ONE (10:00)
[2023-01-31] MEDS ORDERED: DIAZEPAM 5 MG TABLET ONE (10:00)
[2023-01-31] MEDS ORDERED: MORPHINE 4 MG/ML SYR ONE (12:33)
--- NOTE | 2023-01-31 12:54 | ER ---
Nurse's Notes [facility] Name: Jeferson Davidson Jr Age: 27 yrs Sex: Male : 1995 Arrival Date: 01/31/2023 Time: 09:24 Bed 12 Private MD: Diagnosis: Strain of muscle and tendon of back wall of thorax;Strain of muscle, fascia and tendon of abdomen, lower back and pelvis Presentation: 01/31 09:44 Chief complaint: Patient states: pain to left sub-scapular area. Coronavirus screen: At aa5 this time, the client does not indicate any symptoms associated with coronavirus-19. Ebola Screen: Patient denies travel to an Ebola-affected area in the 21 days before illness onset. Initial Sepsis Screen: Does the patient meet any 2 criteria? No. Patient's initial sepsis screen is negative. Does the patient have a suspected source of infection? No. Patient's initial sepsis screen is negative. Risk Assessment: Do you want to hurt yourself or someone else? Patient reports no desire to harm self or others. Onset of symptoms was January 2023. 09:44 Method Of Arrival: Ambulatory aa5 09:44 Acuity: THANG 4 aa5 Historical: - Allergies: 09:45 Amoxicillin; aa5 09:45 Codeine (dizzy); aa5 - PMHx: 09:45 None; aa5 - PSHx: 09:45 left ring finger; aa5 - Immunization history:: Adult Immunizations unknown. - Social history:: Smoking status: Patient denies any tobacco usage or history of. Vital Signs: 09:44 BP 123 / 72; Pulse 74; Resp 18 S; Temp 98.4(TE); Pulse Ox 100% on R/A; Weight 148.32 kg aa5 (R); Height 5 ft. 9 in. (175.26 cm) (R); 09:44 Body Mass Index 48.29 (148.32 kg, 175.26 cm) aa5 ED Course: 09:24 Patient arrived in ED. rg4 09:26 Ismael Prieto PA is PHCP. jmm 09:26 Raza Anand DO is Attending Physician. jmm 09:44 Triage completed. aa5 09:44 Arm band placed on. aa5 09:57 Phoebe Chaudhari, RN is Primary Nurse. iw Administered Medications: 10:00 Drug: Ketorolac 30 mg Route: IM; Site: right deltoid; aa5 10:00 Drug: Valium (diazepam) 5 mg Route: PO; aa5 12:31 Drug: morphine 4 mg Route: IM; Site: right deltoid; iw Outcome: 12:54 Discharge ordered by MD. kapoor 13:08 Patient left the ED. iw Signatures: Ismael Prieto PA PA jmm Williams, Irene, RN RN Alejandra Stanford RN RN Alejandrina Sood rg4 Corrections: (The following items were deleted from the chart) 09:45 09:45 PSHx: None; aa5 aa5 09:46 09:44 Pulse 74bpm; Resp 18bpm; Spontaneous; Pulse Ox 100% RA; Temp 98.4F Temporal; aa5 148.32 kg Reported; Height 5 ft. 9 in. Reported; BMI: 48.2; aa5
--- NOTE | 2023-01-31 12:55 | EDPHYS ---
Physician Documentation [facility] Name: Jeferson Davidson Jr Age: 27 yrs Sex: Male : 1995 Arrival Date: 01/31/2023 Time: 09:24 Bed 12 Private MD: ED Physician Raza Anand HPI: 01/31 09:39 This 27 yrs old Male presents to ER via Ambulatory with complaints of Back jmm Pain. 09:39 The patient presents with pain and an injury. Onset: The symptoms/episode jmm began/occurred acutely. The pain does not radiate. This is a 27-year-old male with no chronic medical conditions presents emerged part with complaints of left lumbar pain which occurred after he bent down to reach an object. Denies any radiation of pain. Denies bowel or bladder injury. Denies abdominal pain, chest pain, shortness of breath.. Historical: - Allergies: 09:45 Amoxicillin; aa5 09:45 Codeine (dizzy); aa5 - PMHx: 09:45 None; aa5 - PSHx: 09:45 left ring finger; aa5 - Immunization history:: Adult Immunizations unknown. - Social history:: Smoking status: Patient denies any tobacco usage or history of. ROS: 09:39 Constitutional: Negative for fever, chills, and weight loss, Cardiovascular: Negative jmm for chest pain, palpitations, and edema, Respiratory: Negative for shortness of breath, cough, wheezing, and pleuritic chest pain. 09:39 Back: Positive for pain with movement. 09:39 All other systems are negative. Exam: 09:39 Constitutional: This is a well developed, well nourished patient who is awake, alert, jmm and in no acute distress. Head/Face: atraumatic. Eyes: EOMI, no conjunctival erythema appreciated ENT: Moist Mucus Membranes Neck: Trachea midline, Supple Chest/axilla: Normal chest wall appearance and motion. Cardiovascular: Regular rate and rhythm. No edema appreciated Respiratory: Normal respirations, no respiratory distress appreciated Abdomen/GI: Non distended 09:39 Back: pain, that is moderate, of the left low back and left mid back. 09:39 Musculoskeletal/extremity: ROM: intact in all extremities. 09:39 Skin: Appearance: Color: normal in color. 09:39 Neuro: Motor: is normal. 09:39 Psych: Behavior/mood is pleasant, cooperative. Vital Signs: 09:44 BP 123 / 72; Pulse 74; Resp 18 S; Temp 98.4(TE); Pulse Ox 100% on R/A; Weight 148.32 kg aa5 (R); Height 5 ft. 9 in. (175.26 cm) (R); 09:44 Body Mass Index 48.29 (148.32 kg, 175.26 cm) aa5 MDM: 09:39 Patient medically screened. [facility] 12:53 Differential diagnosis: Strain, sprain. Data reviewed: vital signs, nurses notes. I jmm considered the following discharge prescriptions or medication management in the emergency department Medications were administered in the Emergency Department. See MAR. Test considered but Not performed: MRI: No neurologic symptoms. Counseling: I had a detailed discussion with the patient and/or guardian regarding: the historical points, exam findings, and any diagnostic results supporting the discharge/admit diagnosis, the need for outpatient follow up, to return to the emergency department if symptoms worsen or persist or if there are any questions or concerns that arise at home. ED course: Pain is mildly relieved in the ED. Patient advised to follow-up with spine and otherwise given strict return precautions. Patient understood agrees plan of care. Administered Medications: 10:00 Drug: Ketorolac 30 mg Route: IM; Site: right deltoid; aa5 10:00 Drug: Valium (diazepam) 5 mg Route: PO; aa5 12:31 Drug: morphine 4 mg Route: IM; Site: right deltoid; Disposition Summary: 01/31/23 12:54 Discharge Ordered Location: Home [facility] Condition: Stable jm Diagnosis - Strain of muscle and tendon of back wall of thorax jmm - Strain of muscle, fascia and tendon of abdomen, lower back and pelvis jm Followup: jmm - With: Private Physician - When: 2 - 3 days - Reason: Recheck today's complaints, Continuance of care, Re-evaluation by your physician Discharge Instructions: - Discharge Summary Sheet jmm - Low Back Sprain or Strain Rehab-SportsMed jm Forms: - Work release form jmm - Medication Reconciliation Form jmm - Thank You Letter jmm - Antibiotic Education jmm - Prescription Opioid Use [facility] Prescriptions: - Zanaflex 4 mg Oral Tablet - take 1 tablet by ORAL route every 8 hours As needed; 20 tablet; Refills: 0, [facility] Product Selection Permitted - Diclofenac Sodium 75 mg Oral Tablet Sustained Release - take 1 tablet by ORAL route 2 times per day; 30 tablet; Refills: 0, Product [facility] Selection Permitted - Medrol (Leo) 4 mg Oral Tablets, Dose Pack - take 1 tablet by ORAL route as directed - follow package instructions; 1 jm packet; Refills: 0, Product Selection Permitted Signatures: Ismael Prieto PA PA jmm Williams, Irene, RN RN iw Calderon, Audri, RN RN aa5 Corrections: (The following items were deleted from the chart) 09:45 09:45 PSHx: None; adonay5 aa5
[2023-01-31 13:22] VITALS: BP 123/72; TEMP 98.4; O2SAT 100
== END 2023-01-31 13:08 | disposition home or self-care (01) ==
LOC: ER 09:19
DX: S39.012A Strain of muscle, fascia and tendon of lower back, initial encounter (principal); S39.013A Strain of muscle, fascia and tendon of pelvis, initial encounter; S29.012A Strain of muscle and tendon of back wall of thorax, initial encounter
CPT/HCPCS: 96372; 99282